=== PATIENT | male | born 1985 | race Caucasian/White ===

== ENCOUNTER 2022-05-16 01:38 | Day surgery (SDC) | payer OTHER, SELFPAY ==
[2022-04-29 15:59] VITALS: BMI 29.0
[2022-05-16 07:54] VITALS: BP 151/101; PULSE 81; RESP 16; TEMP 36.3; O2SAT 98; BMI 29.6
[2022-05-16] MEDS: LACTATED RINGERS 1,000 ML 150 ML IV CONT (08:04)
--- NOTE | 2022-05-16 08:28 | PM.HPGS ---
History of Present Illness History of Present Illness Consent: Risks, benefits, and alternatives have been discussed and questions answered. Patient agrees to proceed with procedure. Chief complaint: family hx colon ca Narrative: Tommy Bose is a 36 year old male Presents for screening colonoscopy. Patient's current weight appetite and bowel movements are normal. He denies abdominal pain. He has had no bleeding. Family history is significant is mother had colon cancer at approximately age 50. His sister had colon polyps in her 30s. Patient reports that his current bowel movements are normal. He presents today for neoplasia screening colonoscopy. Review of Systems Review of Systems: Review of systems noncontributory. [facility] Past Medical History Medical History (Updated 03/29/22 @ 16:14 by Audi Camacho MD) Family hx of colon cancer Family History Family History Mother Family history of diabetes mellitus in first degree relative Social History Social History (Updated 03/29/22 @ 15:44 by Katiuska Negrete) Smoking packs per day: 0.5 Smoking cigarettes per day: 10.0 Years smoked: 7 Smoking pack-years: 3.50 Smoking status: Former smoker Tobacco type: cigarettes Second hand tobacco smoke exposure: No Alcohol intake: never Substance use: never Substance use type: does not use Living arrangements: with family Gender identity (if verbalized by the patient): Male Spiritual care concerns: No Meds Home Medications and Allergies Home Medications Medication Instructions Recorded Confirmed Type No Home Medications 05/16/22 05/16/22 History Allergies Allergy/AdvReac Type Severity Reaction Status Date / Time No Known Allergies Allergy Verified 05/16/22 07:52 Vital Signs Vital Signs - 24 hr 05/16/22 07:54 Temperature 97.3 F L Pulse Rate 81 Respiratory Rate 16 Blood Pressure 151/101 H Pulse Oximetry 98 Oxygen Delivery Room Air Exam Narrative: Physical exam reveals patient to be alert. Vital signs stable. HEENT exam is unremarkable. Patient is anicteric. Lungs are clear to auscultation and percussion. Heart is without murmur or extra sounds. Abdomen bowel sounds are present soft nontender with no organomegaly. Digital external rectal exam is normal. Assessment and Plan Assessment and plan (1) Family hx of colon cancer: Code(s): Z80.0 - Family history of malignant neoplasm of digestive organs Status: Acute Assessment and Plan: Patient has family history of colon cancer in his mother and colon polyps in his sister. Plan for surveillance colonoscopy now and consider this 5 year intervals in the future.
--- NOTE | 2022-05-16 08:30 | SUR.PREOP ---
Per Dr. Jon, patient can use home nose spray before the procedure for nasal decongestion.
--- NOTE | 2022-05-16 09:02 | P.PNAN_ITS ---
Anes - Initial Pre Proc Eval Procedure: Operation Date: 05/16/22 09:00 Proposed Procedures p Screening Colonoscopy - Eugene Flanagan MD Date/Time: 05/16/22 09:02 Surgeon: Eugene Flanagan MD Pre Op Diagnosis: family hx colon ca Patient Data Age: 36 Gender: M Height: 1.85 m Weight: 101.9 kg Last Vital Signs Temp 97.3 F L 05/16/22 07:54 Pulse 81 05/16/22 07:54 Resp 16 05/16/22 07:54 BP 151/101 H 05/16/22 07:54 Pulse Ox 98 05/16/22 07:54 O2 Del Method Room Air 05/16/22 07:54 Allergies Allergy/AdvReac Type Severity Reaction Status Date / Time No Known Allergies Allergy Verified 05/16/22 07:52 Home Medications Medication Instructions Recorded Confirmed Type No Home Medications 05/16/22 05/16/22 History Patient hx anesthesia problems: none Family hx anesthesia problems: none Results Review: All pre-operative results and documents have been reviewed as part of the pre- operative evaluation. [facility] Past Medical History Medical History (Updated 03/29/22 @ 16:14 by Audi Camacho MD) Family hx of colon cancer Family History Family History Mother Family history of diabetes mellitus in first degree relative Social History Social History (Updated 03/29/22 @ 15:44 by Katiuska Negrete) Smoking packs per day: 0.5 Smoking cigarettes per day: 10.0 Years smoked: 7 Smoking pack-years: 3.50 Smoking status: Former smoker Tobacco type: cigarettes Second hand tobacco smoke exposure: No Alcohol intake: never Substance use: never Substance use type: does not use Living arrangements: with family Gender identity (if verbalized by the patient): Male Spiritual care concerns: No Anes - Eval Final PreProcedure Day of Procedure 05/16/22 09:02 Patient weight: normal Heart: regular rate and rhythm Lungs: clear to auscultation Airway: Mallampati scale class II Neurological: alert and oriented Last oral intake: >/= 8 hours ASA classification: II Emergent: no Anesthetic plan: proceed Anesthesia type and monitoring: general GIVS and standard monitoring Results Review: All pre-operative results and documents have been reviewed as part of the pre- operative evaluation. Informed Consent: The patient's anesthetic plan and its attendant risks and benefits were discussed with the patient/family/POA. Questions were solicited and answers provided to the satisfaction of the patient/family/POA.
[2022-05-16 09:22] VITALS: BP 123/84; PULSE 60; RESP 15; O2SAT 99
[2022-05-16 09:32] VITALS: BP 133/92; PULSE 55; RESP 18; O2SAT 99
[2022-05-16 09:42] VITALS: BP 146/101; PULSE 54; RESP 22; O2SAT 100
== END 2022-05-16 09:49 | disposition home or self-care (01) ==
PROVIDERS: PCP Family Medicine; Visit Provider Internal Medicine Gastroenterology
PROC: 0DJD8ZZ Inspection of Lower Intestinal Tract, Via Natural or Artificial Opening Endoscopic (ICD-10-PCS; CPT 45378; principal; 2022-05-16 09:00)
DX: Z12.11 Encounter for screening for malignant neoplasm of colon (principal); K63.5 Polyp of colon; Z80.0 Family history of malignant neoplasm of digestive organs; K64.8 Other hemorrhoids; Z87.891 Personal history of nicotine dependence
CPT/HCPCS: 45385; 88305; J2704; J7120

== ENCOUNTER 2025-01-13 09:24 | Outpatient (CLI) | payer OTHER, SELFPAY ==
--- OUTSIDE RECORDS SUMMARY | 2025-01-13 10:10 | XMS_ITS | Clinical Summary ---
Author Organization [facility] [address] Address [address] [place] [address] Care Team Providers Care Journeyman Glazier Name Role Phone Audi Camacho MD Primary Care Provider Allergies No known active allergies Medications Anucort-HC 25 mg suppository UNWRAP AND INSERT 1 SUPPOSITORY RECTALLY DAILY 2 Active Sutab 1.479-0.188- 0.225 gram tablet as directed 2 Active triamcinolone (KENALOG) 0.1 % cream APPLY TOPICALLY TO THE AFFECTED AREA TWICE DAILY 2 Active Active Problems Problem Noted Date Diagnosed Date Anterior shoulder dislocation 05/19/2014 Bursitis of shoulder 05/19/2014 Closed posterior dislocation of humerus 01/28/20 14 Arthralgia of shoulder 01/21/2014 Immunizations Immunization Administration Dates Next Due Tdap 07/10/2022 Family History Medical History Relation Name Comments Diabetes Father Family history of diabetes mellitus - (Added by TW Conv) Hypertension Father Family history of hypertension - (Added by TW Conv) Arthritis Mother Family history of arthritis - (Added by TW Conv) Cancer Mother Family history of malignant neoplasm - (Added by TW Conv) Diabetes Mother Family history of diabetes mellitus - (Added by TW Conv) Hypertension Mother Family history of hypertension - (Added by TW Conv) Bleeding Disorder Sister Family his tory of bleeding disorder - (Added by TW Conv) Relation Name Status Comments Father Mother Sister Social History Tobacco Use Types Packs/Day Years Used Date Smoking Tobacco: Former Sex and Gender Information Value Date Recorded Sex Assigned at Not on file Legal Sex Male 6:41 AM PERSONNEL CONSULTANT Gender Identity Not on file Sexual Orientation Not on file Obstetrics History Last Filed Vital Signs Vital Sign Reading Time Taken Comments Blood Pressure 150/98 07/10/2022 2:09 PM PERSONNEL CONSULTANT Pulse 70 07/10/2022 2:09 PM PERSONNEL CONSULTANT Temperature 36.8 C (98.3 F) 07/10/2022 2:09 PM PERSONNEL CONSULTANT Respiratory Rate 16 07/10/2022 2:09 PM PERSONNEL CONSULTANT Oxygen Saturation 96% 07/10/2022 2:09 PM PERSONNEL CONSULTANT Inhaled Oxygen Concentration - - Weight 106.1 kg (234 lb) 07/13/2022 11:11 AM PERSONNEL CONSULTANT Height 183 cm (6' 0.05) 07/13/2022 11:11 AM PERSONNEL CONSULTANT Body Mass Index 31.69 07/13/2022 11:11 AM PERSONNEL CONSULTANT Plan of Treatment Health Maintenance Due Date Last Done Comments Depression Screening 1985 Hepatitis C Screening 1985 Varicella Vaccines (1 of 2 - 13+ 2-dose series) 1998 Hepatitis B Screening 2003 Regular Well Visit/Exam 18-64 2003 Covid-19 Vaccine (3 - 2023-2 5 season) 2024 04/07/2021, 03/15/2021 Influenza Vaccine (Season Ended) 2025 DTaP/Tdap/Td Vaccine (2 - Td or Tdap) 07/10/2032 07/10/2022 HPV Vaccines Aged Out No longer eligi ble based on patient's age to complete this topic Pneumococcal vaccine <65 Aged Out No longer eligible based on patient's age to complete this topic Insurance * Guarantor: Tommy Castro Account Type Relation to Patient Date of Phone Billing Address Personal/Family Self 1985 [facility] [place] [address] [employer] * Guarantor: Tommy Castro Account Type Relation to Patient Date of Phone Billing Address Personal/Family Self 1985 [facility] [place] [address] Care Teams Journeyman Glazier Relationship Specialty Start Date End Date Audi Camacho MD [address] [facility] [address] [place], [place] [id number] PCP - General Family Medicine 06/23/17
--- OUTSIDE RECORDS SUMMARY | 2025-01-13 10:10 | XMS_ITS | Referral Summary ---
Author Organization [facility] [address] Address [address] [place] [address] Care Team Providers Care Faculty Administrator Name Role Phone Audi Camacho MD Primary [...] Immunization Administration Dates Next Due Tdap 07/10/2022 Social History Tobacco Use Types Packs/Day Years Used Date Smoking Tobacco: Former Sex and Gender Information Value Date Recorded Sex Assigned at Not on file Legal Sex Male 6:41 AM SCIENCE INTERPRETER Gender Identity Not on file Sexual Orientation Not on file Last Filed Vital Signs Vital Sign Reading Time Taken Comments Blood Pressure 150/98 07/10/2022 2:09 PM SCIENCE INTERPRETER Pulse 70 07/10/2022 2:09 PM SCIENCE INTERPRETER Temperature 36.8 C (98.3 F) 07/10/2022 2:09 PM SCIENCE INTERPRETER Respiratory Rate 16 07/10/2022 2:09 PM SCIENCE INTERPRETER Oxygen Saturation 96% 07/10/2022 2:09 PM SCIENCE INTERPRETER Inhaled Oxygen Concentration - - Weight 106.1 kg (234 lb) 07/13/2022 11:11 AM SCIENCE INTERPRETER Height 183 cm (6' 0.05) 07/13/2022 11:11 AM SCIENCE INTERPRETER Body Mass Index 31.69 07/13/2022 11:11 AM SCIENCE INTERPRETER Plan of Treatment Not on file Insurance [employer] C[employer] Care Teams Faculty Administrator Relationship Specialty Start Date End Date Audi Camacho MD [address] [place] [address] PCP - General Family Medicine 06/23/17
--- NOTE | 2025-01-25 14:06 | WPDHOLTEREM ---
Holter/Event Monitor Holter/Event Monitor Date of procedure: 01/13/25 Holter/Event Procedure: 3-7 Day Holter Monitor Indications: Palpitations Conclusion: 1. 3 days holter monitor on 01/13/25. 2. Predominant rhythm is sinus rhythm. HR range 44-171 bpm; average HR 71 bpm. HR at 44 bpm was on 01/15/25 at 7:08 am. 3. There are rare premature supraventricular complexes, rare supraventricular couplets, and rare supraventricular triplets. There are 3 episodes of supraventricular tachycardia with fastest at 171 bpm and longest lasting 27 seconds. 4. There are rare premature ventricular complexes and rare ventricular triplets. No ventricular tachycardia. 5. No significant pauses greater than 3 seconds. 6. Patient reports 1 episode of symptom of lightheadedness and shortness of breath which demonstrates sinus rhythm at 77 bpm.
== END 2025-01-13 09:25 | disposition home or self-care (01) ==
PROVIDERS: PCP Family Medicine; Visit Provider Physician Assistant
DX: R00.2 Palpitations (principal)
CPT/HCPCS: 93242